=== PATIENT | female | born 1980 | race Caucasian/White ===

== ENCOUNTER 2017-02-09 14:17 | Emergency (ER) | payer MEDICAID, OTHER ==
[~2017-02-09] VITALS: Ht 157.5 cm; Wt 53.0 kg
[~2017-02-09 14:17] MED LIST: IBUP600 PO; OXYC1SOL5 PO; PERI8.6T PO; PRENCAP6 PO
[2017-02-09 14:21] VITALS: BP 140/76; PULSE 93; RESP 12; TEMP 98.9; O2SAT 99
--- NOTE | 2017-02-09 16:38 | RADRPT ---
EXAM DATE/TIME: 02/09/2017 16:17 [place] COMPARISON: No previous studies available for comparison. INDICATIONS : Patient was working at [employer] and had fish dave punctured 2nd digit on right hand at 2nd DIPJ . Inflamamtion to distal 2nd digit. MEDICAL HISTORY : None. SURGICAL HISTORY : None. ENCOUNTER: Initial ACUITY: 2 days PAIN SCORE: 5/10 LOCATION: Right 2nd DIPJ. FINDINGS: Examination of the second digit of the right hand demonstrates no evidence of fracture or dislocation . No radiopaque foreign bodies are seen. The soft tissues are mildly prominent. CONCLUSION: 1. No radiopaque foreign body. Yovany Washburn MD on February 09, 2017 at 16:33 Board Certified Radiologist. This report was verified electronically.
--- NOTE | 2017-02-09 16:44 | PD ---
HPI Chief Complaint: Skin Problem Time Seen by Provider: 15:42 Travel History International Travel<30 days: No Contact w/Intl Traveler<30days: No Traveled to known affect area: No History of Present Illness HPI 28-year-old female complains of pain in the right index finger. She was cut by a red snapper yesterday. Swelling worsened overnight and into the morning. Been constant. It's worse with range of motion. No fever. Warm water helped with pain. PFSH Past Medical History Medical History: Denies Significant Hx ?: Not LMP: 02/09/17 Para: 2 Miscarriage: 1 : 1 Past Surgical History Section: Yes (X ) Social History Alcohol Use: Yes (SOCIALLY ) Tobacco Use: Yes Allergies-Medications (Allergen,Severity, Reaction): Coded Allergies: penicillin G (Unverified Allergy, Mild, 02/09/17) Reported Meds & Prescriptions Reported Meds & Active Scripts Active No Active Prescriptions or Reported Medications Review of Systems Except as stated in HPI: all other systems reviewed are Neg General / Constitutional: No: Fever Respiratory: No: Cough Gastrointestinal: No: Vomiting Physical Exam Narrative GENERAL: 78-year-old female pleasant well-nourished well-developed SKIN: Focused skin assessment warm/dry. HEAD: Atraumatic. Normocephalic. EYES: Pupils equal and round. No scleral icterus. No injection or drainage. ENT: No nasal bleeding or discharge. Mucous membranes pink and moist. NECK: Trachea midline. No JVD. CARDIOVASCULAR: Regular rate and rhythm. No murmur appreciated. RESPIRATORY: No accessory muscle use. Clear to auscultation. Breath sounds equal bilaterally. GASTROINTESTINAL: Abdomen soft, non-tender, nondistended. Hepatic and splenic margins not palpable. MUSCULOSKELETAL: The right index finger is symmetrically swollen from the proximal interphalangeal articulation through fingertip. Active flexion at the distal interphalangeal is slightly limited however not restricted by pain. NEUROLOGICAL: Awake and alert. No obvious cranial nerve deficits. Motor grossly within normal limits. Normal speech. PSYCHIATRIC: Appropriate mood and affect; insight and judgment normal. Data Data Last Documented VS Vital Signs Date Time Temp Pulse Resp B/P (MAP) Pulse Ox O2 Delivery O2 Flow Rate FiO2 02/09/17 14:21 98.9 93 12 140/76 (97) 99 Vital signs reviewed Orders Orders Finger ([id number]) (02/09/17 ) MDM Medical Decision Making Medical Screen Exam Complete: Yes Emergency Medical Condition: Yes Medical Record Reviewed: Yes Differential Diagnosis Flexor tenosynovitis, cellulitis, abscess Narrative Course Patient has finger cellulitis. There is no flexor tenosynovitis at this point. Cipro and doxycycline will be given. Strict return precautions discussed and the patient agrees with them and is in preference of heading home. Finger Xray: no foreign body Diagnosis Primary Impression: Finger infection Med/Other Pt SpecificInfo: Prescription(s) given Scripts Doxycycline Hyclate (Doxycycline Hyclate) 100 Mg Cap 100 MG PO BID for Infection, #20 CAP 0 Refills Prov: Pilo Smith MD 02/09/17 Ciprofloxacin (Cipro) 500 Mg Tab 500 MG PO BID for Infection for 10 Days, #20 TAB 0 Refills Prov: Pilo Smith MD 02/09/17 Disposition: 01 DISCHARGE HOME Condition: Stable Pilo Smith MD Feb 09, 2017 16:44
[2017-02-09] MEDS ORDERED: CIPR-9 PO (16:47)
[2017-02-09] MEDS ORDERED: DOXY100C PO (16:47)
[2017-02-09] MEDS ORDERED: CIPROFLOXACIN 500 MG TAB PO ONE (17:00)
[2017-02-09] MEDS ORDERED: metroNIDAZOLE 500 MG TAB PO ONE (17:00)
== END 2017-02-09 17:06 | disposition home or self-care (01) ==
LOC: NEPE 14:17
DX: L03.011 Cellulitis of right finger (principal)
CPT/HCPCS: 73140; 99284